=== PATIENT | female | born 1995 | race Caucasian/White ===

== ENCOUNTER 2019-05-27 11:50 | Emergency (ER) | payer BC ==
[2019-05-27] MEDS ORDERED: Lidocaine 2% VISCOUS* 15 ML UDC PO ONE (13:09)
[2019-05-27] MEDS ORDERED: Al Hydrox/Mg Hydrox/Simet LIQ* 30 ML UDC PO ONE (13:09)
--- NOTE | 2019-05-27 13:17 | ED ---
Abdominal Pain/Female - HPI Summary HPI Summary: 23-year-old female presents to emergency department today with a chief complaint of abdominal pain 1 week. She states this abdominal pain is a "burning pain" in the mid epigastric region which is worse while lying down and while eating. The patient states she takes 3 ibuprofen a day approximately 3 days a week and she has been doing this for "a long time". Patient denies smoking history, recent alcohol use or recreational drug use. She was recently seen at urgent care 4 days ago and diagnosed with an ear infection and given Augmentin 875 twice a day. She's been taking the antibiotic as prescribed with no relief of her abdominal pain. She reports returning to urgent care 2 days after being diagnosed with ear infection where she was told her chest pain is due to indigestion and was given maaylox, which she says has not helpd.She denies fever, shortness of breath, pain with urination, increased frequency, blood per rectum, dark colored stools, diarrhea, joint pain, rash. - History of Current Complaint Chief Complaint: EDAbdPain Stated Complaint: FEVER/STOMACH PAINS PER PT Time Seen by Provider: 05/27/19 12:15 Hx Obtained From: Patient Onset/Duration: Gradual Onset, Lasting Days Timing: Constant Severity Initially: Moderate Severity Currently: Moderate Pain Intensity: 6 Pain Scale Used: 0-10 Numeric Location: Epigastric Radiates: No Character: Burning Aggravating Factor(s): Food, Movement Alleviating Factor(s): Position, Medications - maaylox Associated Signs and Symptoms: Positive: Diarrhea. Negative: Diaphoresis, Fever , Cough, Chest Pain, Back Pain, Constipation, Blood in Stool, Urinary Symptoms, Decreased Appetite, Vaginal Bleeding, Vaginal Discharge, Vomiting Allergies/Adverse Reactions: Allergies Allergy/AdvReac Type Severity Reaction Status Date / Time Sulfa (Sulfonamide Allergy Unknown Verified 05/27/19 11:56 Antibiotics) Reaction Details Home Medications: Home Medications Amoxicillin/Clavulanate TAB* [Augmentin TAB 875*] 875 mg PO BID 05/27/19 [ History Confirmed 05/27/19] Etonogestrel [Nexplanon] 68 mg SUBCUT ONCE 05/27/19 [History Confirmed 05/27/19] Nitrofurantoin Macrocrystals* [Macrodantin 50 MG*] 50 mg PO DAILY 05/27/19 [ History Confirmed 05/27/19] Sertraline* [Zoloft*] 100 mg PO DAILY 05/27/19 [History Confirmed 05/27/19] PMH/Surg Hx/FS Hx/Imm Hx Cardiovascular History: Denies: Hx Auto Implanted Cardiovert Defib History: Denies: Hx Acute Renal Failure Opthamlomology History: Denies: Hx Eye Prosthesis, Hx Glaucoma EENT History: Denies: Hx Deafness - Immunization History Immunizations Up to Date: Yes Infectious Disease History: No Infectious Disease History: Denies: Traveled Outside the [place] in Last 30 Days - Social History Alcohol Use: None Substance Use Type: Reports: None Smoking Status (MU): Never Smoked Tobacco Review of Systems Constitutional: Negative Eyes: Negative Positive: Chest Pain Respiratory: Negative Positive: Diarrhea. Negative: Abdominal Pain, Vomiting, Nausea Genitourinary: Negative Musculoskeletal: Negative Skin: Negative Neurological: Negative Psychological: Normal All Other Systems Reviewed And Are Negative: Yes Physical Exam Triage Information Reviewed: Yes Vital Signs On Initial Exam: Initial Vitals Temp Pulse Resp BP Pulse Ox 97.3 F 84 16 129/69 99 05/27/19 11:53 05/27/19 11:53 05/27/19 11:53 05/27/19 11:53 05/27/19 11:53 Vital Signs Reviewed: Yes Appearance: Positive: Well-Appearing, No Pain Distress Skin: Positive: Warm, Skin Color Reflects Adequate Perfusion Head/Face: Positive: Normal Head/Face Inspection Eyes: Positive: EOMI, ROMAIN ENT: Positive: Hearing grossly normal Respiratory/Lung Sounds: Positive: Clear to Auscultation, Breath Sounds Present Cardiovascular: Positive: RRR, S1, S2 Abdomen Description: Positive: No Organomegaly, Soft. Negative: CVA Tenderness (R), CVA Tenderness (L), Distended, Guarding Musculoskeletal: Positive: Strength/ROM Intact Neurological: Positive: Sensory/Motor Intact, Alert, Oriented to Person Place, Time, Normal Gait, Speech Normal Psychiatric: Positive: Normal AVPU Assessment: Alert Procedures - Sedation Patient Received Moderate/Deep Sedation with Procedure: No Diagnostics - Vital Signs Vital Signs Temp Pulse Resp BP Pulse Ox 05/27/19 11:53 97.3 F 84 16 129/69 99 - Laboratory Lab Statement: Any lab studies that have been ordered have been reviewed, and results considered in the medical decision making process. Abdominal Pain Fem Course/Dx - Course Course Of Treatment: Patient was evaluated in the emergency department for abdominal pain. The patient was seen and examined. Her vitals were stable and she is afebrile. She was given medication to treat probable gastritis including viscous lidocaine and Maalox. 20 minutes after being given these medications the patient reported significantly improved symptoms. Due to the patient's history, physical exam and improvement with these medications and is likely she has gastritis and should be followed by primary care physician. She was told to take Maalox and omeprazole daily for her symptoms and follow up with [facility] on Thursday05/30/2019. She was told to stop taking her ibuprofen, drinking alcohol, and to sleep upright. She was told to return to the emergency department immediately if she developed any new or worsening symptoms. She agreed with this plan. - Diagnoses Differential Diagnosis: Positive: Ovarian Cyst, Peptic Ulcer Disease, , Urinary Tract Infection Provider Diagnoses: Abdominal pain, Diarrhea Discharge ED - Sign-Out/Discharge Documenting (check all that apply): Patient Departure - Discharge Plan Condition: Improved Disposition: HOME Patient Education Materials: Indigestion (ED) Referrals: Kim Crowley MD [Primary Care Provider] - 2 Days Additional Instructions: You were seen in the emergency department today due to worsening indigestion. It is likely your symptoms are from irritation of your stomach. You may take the Maalox were given as well as [id number] omeprazole as directed for relief of your symptoms. Please follow-up with your [facility] on Thursday for further evaluation and management of your symptoms. For relief of symptoms you may also do lifestyle changes such as limiting intake prior to sleep. Sleeping at an incline. Decrease alcohol, ibuprofen use. Return to the emergency department immediately if you develop any new or worsening symptoms. - Billing Disposition and Condition Condition: IMPROVED Disposition: Home
[2019-05-27 14:28] VITALS: BP 103/58
== END 2019-05-27 14:27 | disposition home or self-care (01) ==
LOC: ED 11:50
DX: R10.13 Epigastric pain (principal); R19.7 Diarrhea, unspecified; Z88.2 Allergy status to sulfonamides
CPT/HCPCS: 99282; A9270-GY